=== PATIENT | female | born 1980 | race Caucasian/White ===

== ENCOUNTER 2019-02-14 13:26 | Outpatient (CLI) | payer BC ==
--- NOTE | 2019-02-14 14:25 | MRI ---
Brain MRI without contrast: 02/14/2019 COMPARISON: 11/05/2016 HISTORY: Multiple sclerosis TECHNIQUE: Multiplanar multisequence MR imaging of the brain is obtained without contrast. The techno logist reports that the patient refused postcontrast imaging FINDINGS: The axial gradient echo imaging demonstrates no evidence for intracranial hemorrhage. The diffusion weighted imaging demonstrates no evidence for acute infarction. There is no midline shift or mass effect. There is no ventricular enlargement. Regional bone marrow signal intensity appears within normal limits. There is a subtle focus of increased signal intensity within the periventricular white matter adjacen t to the posterior horn of the left lateral ventricle. There is a tiny focus of increased signal intensity posterior to the splenium of the corpus callosum on the left. There are a few small periven tricular lesions on the left superior to the atrium of the lateral ventricle. There are also a few scattered subcortical lesions within bilateral frontal lobes. These lesions are stable when compared to the prior examination. No new lesions are noted. Arterial flow voids at the axial level of the skull base appear grossly unremarkable on the T2-weight ed imaging. The imaged paranasal sinuses and mastoid air cells are well aerated. Incidental note is made of mild polypoid mucosal thickening within the alveolar recess of the maxillary sinus on the right. IMPRESSION: Stable brain MRI demonstrating white matter lesions consistent with the provided history of multiple sclerosis. No new lesions are evident. Patient refused postcontrast imaging.
== END 2019-02-14 13:27 | disposition home or self-care (01) ==
LOC: TBSIIMAG 13:26
PROVIDERS: ATTEND Psychiatry & Neurology Neurology
DX: G35 Multiple sclerosis (principal)
CPT/HCPCS: 70551; 70553

== ENCOUNTER 2020-10-31 14:57 | Outpatient (CLI) | payer BC | END 2020-10-31 14:58 | disposition home or self-care (01) | LOC: BICMAMMO 14:57 | PROVIDERS: ATTEND Internal Medicine | DX: N63.20 Unspecified lump in the left breast, unspecified quadrant (principal); N60.02 Solitary cyst of left breast | CPT/HCPCS: 77066; G0279 ==

== ENCOUNTER 2021-11-14 09:29 | Outpatient (CLI) | payer BC | END 2021-11-14 09:30 | disposition home or self-care (01) | LOC: BICMAMMO 09:29 | PROVIDERS: ATTEND Internal Medicine | DX: Z12.31 Encounter for screening mammogram for malignant neoplasm of breast (principal) | CPT/HCPCS: 77063; 77067 ==

== ENCOUNTER 2021-11-19 12:44 | Outpatient (CLI) | payer BC | END 2021-11-19 12:45 | disposition home or self-care (01) | LOC: BICMAMMO 12:44 | PROVIDERS: ATTEND Internal Medicine | DX: N63.10 Unspecified lump in the right breast, unspecified quadrant (principal); N60.01 Solitary cyst of right breast | CPT/HCPCS: G0279 ==